=== PATIENT | female | born 1970 | race African-American/Black ===

== ENCOUNTER 2018-03-27 08:04 | Emergency (ER) | payer OTHER ==
[~2018-03-27] VITALS: Ht 154.9 cm; Wt 65.0 kg
[2018-03-27 08:29] VITALS: BP 172/64
[2018-03-27] MEDS ORDERED: IBUP-2028 PO (08:32)
== END 2018-03-27 10:37 | disposition home or self-care (01) ==
LOC: ER 08:04
DX: L03.115 Cellulitis of right lower limb (principal); F17.200 Nicotine dependence, unspecified, uncomplicated
CPT/HCPCS: 81025; 99283